=== PATIENT | female | born 1950 | race Two or more races ===

== ENCOUNTER 2018-01-21 17:38 | Emergency (ER) | payer MEDICARE, MEDICAID ==
[~2018-01-21] VITALS: Ht 157.5 cm; Wt 56.7 kg
--- NOTE | 2018-01-21 17:51 | Emergency Room Report ---
History of Present Illness General Chief Complaint: Altered Level of Consciousness Source: Patient, EMS Present Illness HPI Patient presents with complaints of altered mental status Paramedics had been summoned and patient was found to have a low glucose count Currently denies any chest pain or shortness of breath denies any back or flank pain Patient takes insulin for her diabetes and has not had this kind of episode before Patient reports that she did not eat breakfast this morning and has not eaten since last night Denies any chest pain denies any fevers or chills denies any focal weakness Allergies: Coded Allergies: No Known Allergies (Unverified , 01/21/18) Patient History Past Medical History: see triage record Pertinent Family History: none Last Menstrual Period: na Reviewed Nursing Documentation: PMH: Agreed; PSxH: Agreed Nursing Documentation-PMH Past Medical History: No History, Except For Hx Hypertension: Yes Hx Diabetes: Yes Review of Systems All Other Systems: negative except mentioned in HPI Physical Exam Vital Signs Date Time Temp Pulse Resp B/P (MAP) Pulse Ox O2 Delivery O2 Flow Rate FiO2 01/21/18 17:32 95.4 92 18 176/104 98 Room Air 95.4 Sp02 EP Interpretation: reviewed, normal General Appearance: well appearing, no apparent distress Head: normocephalic, atraumatic Eyes: bilateral eye PERRL, bilateral eye EOMI ENT: hearing grossly normal, normal pharynx, TMs + canals normal, uvula midline Neck: full range of motion, supple, no meningismus, no bony tend Respiratory: lungs clear, normal breath sounds, no rhonchi, no respiratory distress, no retraction, no accessory muscle use Cardiovascular #1: normal peripheral pulses, regular rate, rhythm, no edema, no gallop, no JVD, no murmur Gastrointestinal: normal bowel sounds, non tender, soft, no mass, no organomegaly, non-distended, no guarding, no hernia, no pulsatile mass, no rebound Genitourinary: no CVA tenderness Musculoskeletal: normal inspection Neurologic: oriented x3, responsive, steam engineer III-XII nml as tested, motor strength/ tone normal, sensory intact Psychiatric: mood/affect normal Skin: normal color, no rash, warm/dry, palpation normal Lymphatic: normal inspection, no adenopathy Medical Decision Making Diagnostic Impression: Primary Impression: Altered level of consciousness Additional Impression: Hypoglycemia ER Course Patient has multiple differentials considered Including but not limited to insulin reaction, infectious pathology, intracranial pathology CT imaging does not show any acute pathology Initially the glucose had decreased however now started to increase given the patient's multiple comorbidities Given the hypertensive presentation She will require further inpatient care And secondary to insurance purposes requires transfer Labs Test 01/21/18 17:50 01/21/18 18:30 White Blood Count 9.6 K/UL (4.8-10.8) Red Blood Count 4.99 M/UL (4.20-5.40) Hemoglobin 14.6 G/DL (12.0-16.0) Hematocrit 43.6 % (37.0-47.0) Mean Corpuscular Volume 87 FL (80-99) Mean Corpuscular Hemoglobin 29.2 PG (27.0-31.0) Mean Corpuscular Hemoglobin Concent 33.4 G/DL (32.0-36.0) Red Cell Distribution Width 11.5 % (11.6-14.8) Platelet Count 276 K/UL (150-450) Mean Platelet Volume 7.6 FL (6.5-10.1) Neutrophils (%) (Auto) 68.9 % (45.0-75.0) Lymphocytes (%) (Auto) 19.0 % (20.0-45.0) Monocytes (%) (Auto) 7.7 % (1.0-10.0) Eosinophils (%) (Auto) 3.2 % (0.0-3.0) Basophils (%) (Auto) 1.1 % (0.0-2.0) Sodium Level 139 MMOL/L (136-145) Potassium Level 3.5 MMOL/L (3.5-5.1) Chloride Level 103 MMOL/L (98-107) Carbon Dioxide Level 23 MMOL/L (21-32) Anion Gap 13 mmol/L (5-15) Blood Urea Nitrogen 28 mg/dL (7-18) Creatinine 1.3 MG/DL (0.55-1.30) Estimat Glomerular Filtration Rate 41.0 mL/min (>60) Glucose Level 134 MG/DL (74-106) Calcium Level 9.8 MG/DL (8.5-10.1) Total Bilirubin 0.2 MG/DL (0.2-1.0) Aspartate Amino Transf (AST/SGOT) 20 U/L (15-37) Alanine Aminotransferase (ALT/SGPT) 23 U/L (12-78) Alkaline Phosphatase 156 U/L (46-116) Total Creatine Kinase 61 U/L (26-308) Creatine Kinase MB 1.7 NG/ML (0.0-3.6) Creatine Kinase MB Relative Index 2.7 Troponin I 0.000 ng/mL (0.000-0.056) Total Protein 8.9 G/DL (6.4-8.2) Albumin 3.5 G/DL (3.4-5.0) Globulin 5.4 g/dL Albumin/Globulin Ratio 0.6 (1.0-2.7) Lipase 139 U/L (73-393) Urine Color Pale yellow Urine Appearance Clear Urine pH 5 (4.5-8.0) Urine Specific [place] 1.010 (1.005-1.035) Urine Protein 3+ (NEGATIVE) Urine Glucose (UA) 2+ (NEGATIVE) Urine Ketones Negative (NEGATIVE) Urine Occult Blood Negative (NEGATIVE) Urine Nitrite Negative (NEGATIVE) Urine Bilirubin Negative (NEGATIVE) Urine Urobilinogen Normal MG/DL (0.0-1.0) Urine Leukocyte Esterase Negative (NEGATIVE) Urine RBC 0-2 /HPF (0 - 2) Urine WBC 0-2 /HPF (0 - 2) Urine Squamous Epithelial Cells Occasional /LPF Urine Bacteria None /HPF (NONE) EKG Diagnostic Results Rate: normal Rhythm: NSR ST Segments: no acute changes Rhythm Strip Diag. Results EP Interpretation: yes Rate: 77 Rhythm: NSR, no PVC's, no ectopy Chest X-Ray Diagnostic Results Chest X-Ray Diagnostic Results : Chest X-Ray Ordered: Yes # of Views/Limited/Complete: 1 View Indication: Chest Pain EP Interpretation: Yes Interpretation: no consolidation, no effusion, no pneumothorax Impression: No acute disease - Some interstitial disease appearance CT/MRI/US Diagnostic Results CT/MRI/US Diagnostic Results : Impression CT head no acute disease Last Vital Signs Date Time Temp Pulse Resp B/P (MAP) Pulse Ox O2 Delivery O2 Flow Rate FiO2 01/21/18 17:32 95.4 92 18 176/104 98 Room Air 95.4 Status: improved Disposition: XFER SHT-TRM HOSP Condition: Serious Scripts Unable to Obtain Active Prescriptions or Reported Meds Qasim Josue DO Jan 21, 2018 17:51
[2018-01-21 18:00] VITALS: BP 178/96
[2018-01-21 18:01] LABS: BASOPHILS % (AUTO) 1.1 % (0.0-2.0); EOSINOPHILS % (AUTO) 3.2 % (0.0-3.0); HEMATOCRIT 43.6 % (37.0-47.0); HEMOGLOBIN 14.6 G/DL (12.0-16.0); MEAN CORPUSCULAR VOLUME 87 FL (80-99); MONOCYTES % (AUTO) 7.7 % (1.0-10.0); NEUTROPHILS % (AUTO) 68.9 % (45.0-75.0); PLATELET COUNT 276 K/UL (150-450); RED BLOOD COUNT 4.99 M/UL (4.20-5.40); RED CELL DISTRIBUTION WIDTH 11.5 % (11.6-14.8); WHITE BLOOD COUNT 9.6 K/UL (4.8-10.8)
[2018-01-21 18:14] LABS: ANION GAP 13 mmol/L (5-15); BLOOD UREA NITROGEN 28 mg/dL (7-18); CALCIUM 9.8 MG/DL (8.5-10.1); CARBON DIOXIDE 23 MMOL/L (21-32); CHLORIDE 103 MMOL/L (98-107); CREATININE 1.3 MG/DL (0.55-1.30); POTASSIUM 3.5 MMOL/L (3.5-5.1); SODIUM 139 MMOL/L (136-145)
[2018-01-21 18:27] LABS: ALANINE AMINOTRANSFERASE 23 U/L (12-78); ALBUMIN 3.5 G/DL (3.4-5.0); ALBUMIN/GLOBULIN RATIO 0.6 (1.0-2.7); ALKALINE PHOSPHATASE 156 U/L (46-116); ASPARTATE AMINO TRANSFERASE 20 U/L (15-37); BILIRUBIN,TOTAL 0.2 MG/DL (0.2-1.0); CKMB 1.7 NG/ML (0.0-3.6); CREATINE KINASE 61 U/L (26-308)
[2018-01-21 18:43] LABS: APPEARANCE,URINE CLEAR; BILIRUBIN, URINE NEGATIVE (NEGATIVE); COLOR,URINE PALE YELLOW; GLUCOSE, URINE (UA) 2+ (NEGATIVE); KETONES,URINE NEGATIVE (NEGATIVE); LEUKOCYTE ESTERASE ,URINE NEGATIVE (NEGATIVE); NITRITE,URINE NEGATIVE (NEGATIVE); PH,URINE 5 (4.5-8.0); PROTEIN,URINE 3+ (NEGATIVE); UROBILINOGEN,URINE NORMAL MG/DL (0.0-1.0)
[2018-01-21 19:00] VITALS: BP 126/78
[2018-01-21 21:45] VITALS: BP 175/80
[2018-01-21 22:06] VITALS: BP 175/80
--- NOTE | 2018-01-22 08:24 | Diagnostic Imaging Report ---
Indication: Altered mental status Technique: Continuous helical CT scanning of the head was performed utilizing automated exposure control without intravenous contrast material. Axial and coronal reconstructions were obtained. Comparison: None CT dose: Total DLP 1319.78 mGycm; CTDI vol 70.38 mGy Findings: There is no acute intracranial hemorrhage, mass effect or cortical edema. The ventricles, cisterns and sulci are only prominent consistent with mild atrophy. Very mild periventrical hypoattenuation is seen, a nonspecific finding. There atherosclerotic vascular calcifications. Visualized mastoid air cells and paranasal sinuses are unremarkable; incidental note is made of pneumatization of the petrous apices. Mild skin thickening or scar about the high vertex scalp on the right. There is no depressed calvarial fracture. IMPRESSION: No evidence of acute intracranial hemorrhage, mass effect or cortical edema. MRI may be obtained for more sensitive evaluation as clinically indicated. This corresponds with the statrad preliminary report. The CT scanner at [facility] is accredited by the [employer] and the scans are performed using protocols designed to limit radiation exposure to as low as reasonably achievable to attain images of sufficient resolution adequate for diagnostic evaluation.
--- NOTE | 2018-01-22 08:25 | Diagnostic Imaging Report ---
Indication: Pain Technique: XRAY Chest 1v Comparison: None Findings: Heart size and mediastinal contours are within normal limits. There is mild atherosclerotic calcification of the aortic arch. There is no focal consolidation, pneumothorax or pleural effusion. Osseous structures demonstrate no acute abnormality. Surgical clips noted in the right upper quadrant, likely prior cholecystectomy. IMPRESSION: No radiographic evidence of acute cardiopulmonary disease.
== END 2018-01-21 22:08 | disposition short-term general hospital (02) ==
LOC: EDBD 17:38 → EMR 17:55
DX: E11.649 Type 2 diabetes mellitus with hypoglycemia without coma (principal); R07.9 Chest pain, unspecified; I10 Essential (primary) hypertension; R41.82 Altered mental status, unspecified; Z79.4 Long term (current) use of insulin
CPT/HCPCS: 36415; 70450; 71045; 80053; 81003; 82550; 82553; 82962; 83690; 84484; 85025; 93005; 96361; 96374; 99284; J0360